=== PATIENT | male | born 1950 | race Caucasian/White ===

== ENCOUNTER → 2016-09-19 | Outpatient (CLI) | payer MEDICARE ==
--- NOTE | 2016-09-19 19:31 | CONS ---
DATE OF CONSULTATION: REASON FOR CONSULTATION: Sleep apnea. This is a 66-year-old male patient who was diagnosed having obstructive sleep apnea back in 1987. Since then, the patient has had several titration, the last one of which was many years back and the patient was given CPAP at a pressure of 13 or 14 cm of water. He is not exactly sure of the exact pressure. He is utilizing a nose mask. Today he is coming in for a follow-up. His treatment has not been much successful. He thinks that the CPAP pressures is probably low and not giving him the full benefit as the patient is waking up much more sleepy and tired during the day. He probably is snoring also at nighttime. He has no reported witnessed apneas. He is going to bed around 8:00 p.m. Wakes up at 7:00 to 8:00 a.m. in the morning and he seems to be sleeping or at least spending in bed around 8 to 10 hours every night. He is fatigued and sleepy and his Granville score is 5. Denies having any recent weight gain. His weight is around 350 pounds. His BMI is 46.1. He has chronic atrial fibrillation in addition. He is also in need for supplies as he recently switched his insurance to Medicare and reconfirmation of his SANTI would be needed and I thought this would be reasonable to undergo a CPAP titration on this patient to upgrade his CPAP pressure knowing that he is having symptoms at the current pressure setting. PAST MEDICAL HISTORY: 1. Obstructive sleep apnea. 2. Chronic atrial fibrillation. 3. Obesity. 4. Prostate enlargement. 5. Cerebrovascular accident. 6. Varicose veins. 7. Past surgical history includes varicose vein stripping. ALLERGIES: Not known. OUTPATIENT MEDICATION: The patient is on Eliquis, Multaq, and [place]. SOCIAL HISTORY: The patient is a nonsmoker. No history of alcohol. No history of IV drugs. FAMILY HISTORY: Negative for sleep apnea. REVIEW OF SYSTEMS: Twelve-point review of systems was done. Positive findings were all mentioned above in the history of present illness. Of significance is the excessive sleepiness. No chronic pain. No restlessness in the lower extremities. No grinding of the teeth. No bruxism. No nightmares. No nausea. No vomiting. No diarrhea. No abdominal pain. No motor vehicle accidents because of feeling drowsy or sleepy. BP is 136/79, pulse 83, respirations 16, temperature 98.4, weight is 350. Neck size 21-1/4. Granville score is 5. BMI is 46.1. Height is 6 feet 1. Saturations 96% on room air. GENERAL APPEARANCE: Calm, comfortable. HEENT: Short neck, crowding posterior pharynx. There is no goiter, neck masses. Mallampati class IV. LUNGS: Diminished; otherwise clear. HEART: Sounds are regular rate and rhythm. ABDOMEN: Soft, nontender. No organomegaly, obese. Organs cannot be accurately palpated. EXTREMITIES: Trace edema. There is no cyanosis or clubbing. IMPRESSION: 1. Symptomatic obstructive sleep apnea. The patient is coming in for re-evaluation. 2. Chronic atrial fibrillation. 3. Cerebrovascular accident. 4. Varicose veins. 5. Morbid obesity with a body mass index of 46.1. PLAN: 1. Will retrieve this patient's original polysomnogram that confirms the presence of sleep apnea. 2. Will set up this patient for a CPAP titration, during which the patient's CPAP pressure will be updated and the mask will be changed and the new mask interface will be given. He opts and prefers nasal mask. 3. Encourage weight loss. 4. Tight control of cardiovascular risk factors. 5. Will follow and will see me back in the office following the titration for further advice and adjustments.
== END | disposition home or self-care (01) ==
LOC: SLEEP 14:04
PROVIDERS: ATTEND Internal Medicine Critical Care Medicine
DX: G47.33 Obstructive sleep apnea (adult) (pediatric) (principal); I48.91 Unspecified atrial fibrillation; I63.9 Cerebral infarction, unspecified; I83.90 Asymptomatic varicose veins of unspecified lower extremity; E66.01 Morbid (severe) obesity due to excess calories; Z68.42 Body mass index [BMI] 45.0-49.9, adult
CPT/HCPCS: 99211

== ENCOUNTER → 2017-05-10 | Outpatient (CLI) | payer MEDICARE ==
[2017-05-10 13:15] LABS: Blood Urea Nitrogen 22 mg/dL (9-20)
--- NOTE | 2017-05-10 14:21 | CT ---
EXAMINATION TYPE: CT chest w con DATE OF EXAM: 05/10/2017 COMPARISON: NONE HISTORY: 67-year-old male Recent diagnosis of colon cancer TECHNIQUE: Contiguous axial scanning of the chest after the administration of 100 mL of Omnipaque 300 . Coronal/sagittal reconstructions performed. CT DLP: 1105.2mGycm. Automatic exposure control utilized for a dose reduction. FINDINGS: Heart upper limits of normal in size without pericardial effusion. Coronary vessel calcifications are present and a marker for coronary artery disease. Mild aneurysm ascending aorta at 4.1 cm. Mild arthroscopic arch calcifications. Conventional arterial vessel branching anatomy. Mild aneurysm upper descending thoracic aorta 3.2 cm. Large caliber to the main right and left pulmonary arteries at 3.1 and 2.9 cm, respectively, suggesti ng underlying pulmonary arterial hypertension. Nonenlarged mediastinal lymph nodes are present. No thoracic lymphadenopathy by CT size criteria. There is minimal plaque-like pleural-based thickening along the posterior left apex, axial image 11. Very mild upper lung emphysematous change. Mild diffuse bronchial wall thickening likely chronic bron chitis. Strandy atelectasis at the inferior lingula. No consolidation or pleural effusion. No suspici ous pulmonary nodule or mass. Visualized upper abdomen shows an anterior splenule in mild stool burden. Bones: Endplate spondylosis mid to lower thoracic spine. No osseous destructive process. IMPRESSION: 1. Mild plaque-like pleural-based thickening along the posterior left apex. Nonspecific finding. This can be reassessed in 6 months. 2. COPD when mild emphysema. 3. Pulmonary arterial hypertension and CAD. 4. No findings of metastatic disease to the thorax. 5. Aneurysmal thoracic aorta (ascending measuring 4.1 cm).
== END | disposition home or self-care (01) ==
LOC: RADCTMAIN 12:41
PROVIDERS: ATTEND Colon & Rectal Surgery
DX: J43.9 Emphysema, unspecified (principal); J98.4 Other disorders of lung; J44.9 Chronic obstructive pulmonary disease, unspecified; I25.10 Atherosclerotic heart disease of native coronary artery without angina pectoris; I71.2 Thoracic aortic aneurysm, without rupture; I27.20 Pulmonary hypertension, unspecified; C21.0 Malignant neoplasm of anus, unspecified
CPT/HCPCS: 82565; 84520; 71260; 36415; Q9967

== ENCOUNTER 2017-05-17 10:36 | Day surgery (SDC) | payer MEDICARE ==
[2017-05-16 15:07] VITALS: BMI 44.3
[2017-05-17 11:23] VITALS: RESP 18; TEMP 97.9
[2017-05-17] MEDS ORDERED: LIDOCAINE 2% INJ 20 MG/ML SQ ONE (12:55)
--- NOTE | 2017-05-17 13:24 | IR ---
PICC LINE PLACEMENT: HISTORY: Infection requiring long-term antibiotic therapy PROCEDURE: Ultrasound and fluoroscopic guidance of PICC line placement. COMPLICATIONS: None ANESTHESIA: 1. 1% Lidocaine locally. FINDINGS/TECHNIQUE: The procedure was explained to the patient. The risks, complications, benefits and alternatives were discussed and any questions were answered. Informed consent was obtained. The patient was placed supine on the fluoroscopic table and prepped and draped in the usual sterile [facility] ion. Utilizing a 21 gauge needle and sonographic and fluoroscopic guidance, access in the vein was achieved and there is placement of a 0.018 guidewire. The vein is patent. A 4-F sheath was placed o nilam the guidewire. The guidewire and dilator were removed and a 4-F. PICC line was placed through th e sheath with the tip at the level of the SVC. The sheath was removed, the catheter was flushed and sutured into position. The patient was stable throughout the procedure and remained stable upon disc harge from the Department of Radiology. The vein puncture was patent under ultrasound. A hart scale image was obtained to document patency of the vein punctured. All elements of the maximal barrier technique were utilized. FLUOROSCOPY TIME: 0.1 minutes and one image submitted IMPRESSION: Successful PICC line placement under ultrasound and fluoroscopic guidance.
[2017-05-17 15:45] VITALS: BP 127/64; PULSE 85
== END 2017-05-17 13:40 | disposition home or self-care (01) ==
LOC: CATHCVL 10:36
PROVIDERS: ATTEND Radiology Diagnostic Radiology
DX: C21.0 Malignant neoplasm of anus, unspecified (principal); I87.2 Venous insufficiency (chronic) (peripheral); I10 Essential (primary) hypertension; F32.9 Major depressive disorder, single episode, unspecified; I48.91 Unspecified atrial fibrillation; Z79.01 Long term (current) use of anticoagulants; Z87.891 Personal history of nicotine dependence; Z79.899 Other long term (current) drug therapy
CPT/HCPCS: 36569; 76937; 77001; C1751; C1769; J2001

== ENCOUNTER → 2017-05-19 | Outpatient (CLI) | payer MEDICARE ==
--- NOTE | 2017-05-21 08:55 | PE ---
EXAMINATION TYPE: PET CT fusion skull to thigh DATE OF EXAM: 05/19/2017 COMPARISON: NONE Prior PET/CT: None HISTORY: Colon cancer TECHNIQUE: Following the intravenous administration of 13.13 mCi of F-18 FDG, whole body images are performed from the skull base to the midthigh. Images are reviewed on the computer in the coronal, a xial, and sagittal planes. Reconstructed rotating images are created on independent workstation and reviewed on the computer. A localization and attenuation correction CT is performed in conjunction with the PET scan. DLP: 645.03 mGycm SCAN: Initial Blood glucose: 99 mg/dL Beam hardening artifact from the patient's body habitus is present. This appears to be affecting the attenuation correction. Best estimates are as follows. Average Mediastinum SUV: 1.5 Average Liver SUV: 2.8 FINDINGS: NECK: No abnormal uptake THORAX: No abnormal uptake ABDOMEN: No abnormal uptake PELVIS: There is focal increased radiotracer accumulation within SUV of 13.4 in the distal rectal reg ion. Findings can be compatible with patient's reported neoplasm. OSSEOUS STRUCTURES: No abnormal uptake LOCALIZATION CT: The ascending thoracic aorta at the level of the main pulmonary artery is dilated at 5.1 cm patent main pulmonary artery the bifurcation is 3.3 cm. Coronary artery calcifications presen t. COMPARISON: None IMPRESSION: 1. Focal increased radiotracer accumulation in the distal rectal region compatible with the patient's reported neoplasm. 2. No suspicious distant areas of uptake to suggest metastatic disease. 3. Examination limited due to patient body habitus. This may be also complicated the patient's report ed claustrophobia.
== END | disposition home or self-care (01) ==
LOC: RADPETMAIN 12:35
PROVIDERS: ATTEND Radiology Radiation Oncology
DX: C21.1 Malignant neoplasm of anal canal (principal)
CPT/HCPCS: 78815; A9552

== ENCOUNTER → 2017-09-06 | Outpatient (CLI) | payer MEDICARE ==
[2017-09-07 14:59] LABS: Hepatits C Virus RNA Not detected (Not detected); Hepatits C Virus RNA, Quant <12 IU/mL (<12); LOG HCV IU/mL <1.08 (<1.08)
== END | disposition home or self-care (01) ==
LOC: LABWHC1 15:23
PROVIDERS: ATTEND Family Medicine
DX: B18.2 Chronic viral hepatitis C (principal)
CPT/HCPCS: 36415; 87522

== ENCOUNTER → 2017-09-08 | Outpatient (CLI) | payer MEDICARE ==
--- NOTE | 2017-09-09 14:51 | PE ---
EXAMINATION TYPE: PET CT fusion skull to thigh DATE OF EXAM: 09/08/2017 COMPARISON: Prior PET/CT May 19, 2017. Prior chest CT May 10, 2017 HISTORY: Colorectal/anal cancer progress study after surgery with chemotherapy and radiation treatmen t completed in August. TECHNIQUE: Following the intravenous administration of 12.518 mCi of F-18 FDG, whole body images are performed from the skull base to the midthigh. Images are reviewed on the computer in the coronal, axial, and sagittal planes. Reconstructed rotating images are created on independent workstation and reviewed on the computer. A noncontrast CT is performed in conjunction with the PET scan. SCAN: Subsequent Scan FINDINGS: SKULL BASE AND NECK: No new areas of suspicious hypermetabolic uptake are identified CHEST, MEDIASTINUM, AND HILAR REGION: No new areas of suspicious hypermetabolic uptake are seen. ABDOMEN AND PELVIS: In the low rectum/anus there is mild residual abnormal hypermetabolic uptake on c urrent study with interval improvement in soft tissue thickening also identified versus prior study. The max SUV is 4.58 near axial image 268. No new areas of suspicious hypermetabolic uptake are identi fied. OSSEOUS STRUCTURES: No new areas of suspicious hypermetabolic uptake are seen. OTHER CT: Artifact from patient's large body habitus is redemonstrated. There is persisting cardiomegaly and coronary artery calcification which is noted marker for coronary artery disease. Some areas of mild pleural thickening in the posterior left upper lung remain present. Ascending aorta measures up to 4.5 cm in diameter on current study axial image 106 Bladder is poorly distended and thus suboptimally evaluated. Some scattered left-sided pelvic phlebol iths are seen. There is multilevel facet arthropathy in the lower lumbar spine. There is multilevel spurring in the thoracic spine. IMPRESSION: Marked Positive treatment response to known tumor in the anus. No new or metastatic disea se identified.
== END | disposition home or self-care (01) ==
LOC: RADPETMAIN 08:03
PROVIDERS: ATTEND Internal Medicine Hematology & Oncology
DX: C21.0 Malignant neoplasm of anus, unspecified (principal)
CPT/HCPCS: 78815; A9552

== ENCOUNTER → 2018-09-14 | Outpatient (CLI) | payer MEDICARE ==
--- NOTE | 2018-09-16 15:40 | PE ---
EXAMINATION TYPE: PET CT fusion skull to thigh DATE OF EXAM: 09/14/2018 COMPARISON: 09/08/2017 and 05/19/2017 HISTORY: History of anal carcinoma. Follow-up exam. Prior surgery and chemotherapy as well as radiati on and august 2017. TECHNIQUE: Following the intravenous administration of 11.426 mCi of F-18 FDG, whole body images are performed from the skull base to the midthigh. Images are reviewed on the computer in the coronal, axial, and sagittal planes. Reconstructed rotating images are created on independent workstation and reviewed on the computer. A localization and attenuation correction CT is performed in conjunction with the PET scan. SCAN: Subsequent FINDINGS: Again the exam is suboptimal given patient body habitus. Mediastinal background: 3.1 Abdominal background: 4.51 SKULL BASE AND NECK: Suspicious metabolic activity. CHEST, MEDIASTINUM, AND HILAR REGION: No suspicious hypermetabolic activity. ABDOMEN AND PELVIS: In the low rectum and anus mild residual hypermetabolic activity is again noted w ith prior max SUV of 4.58 on axial image 268 on the prior and current maximum SUV of 3.7. On the exam of 05/19/2017 this had a reported SUV of 13.4. OSSEOUS STRUCTURES: No suspicious hypermetabolic activity. OTHER CT: Paranasal sinuses and mastoid air cells appear well aerated. Moderate degenerative changes of the spine are seen. No presacral fluid collection. Urinary bladder is decompressed. Therefore urin mahad bladder is suboptimally evaluated. No dilated large or small bowel is seen. CT images are partial ly degraded by patient body habitus and very suboptimal for evaluation. Cardiomegaly is redemonstrate d with moderate coronary artery calcifications. Ascending aorta measures 4.4 cm and main pulmonary ar jomar measures 3.6 cm, enlarged suggesting pulmonary arterial hypertension. Scattered areas of atelect asis are seen within the lungs. Evaluation is limited for pulmonary nodule however no pulmonary mass is seen. There is a questionable new subcentimeter pulmonary nodule within the right middle lobe on i mage 110. IMPRESSION: 1. Continued decrease of focal mild hypermetabolic activity in the low rectum again suggesting posttr eatment change rather than recurrent neoplasm. No new evidence of metastasis in the chest, abdomen, o r pelvis. 2. Questionable new subcentimeter pulmonary nodule in the right middle lobe is suboptimally viewed gi segundo patient body habitus and below the threshold of PET CT. Continued surveillance is recommended.
== END | disposition home or self-care (01) ==
LOC: RADPETMAIN 10:20
PROVIDERS: ATTEND Internal Medicine Hematology & Oncology
DX: C21.0 Malignant neoplasm of anus, unspecified (principal)
CPT/HCPCS: 78815; A9552

== ENCOUNTER → 2019-08-29 | Outpatient (CLI) | payer MEDICARE ==
--- NOTE | 2019-09-02 15:23 | PE ---
Nuclear medicine PET/CT HISTORY: Anal carcinoma, colorectal carcinoma, subsequent Patient received 11.2 mCi F-18 FDG intravenously in delayed scanning was performed from skull base to the mid thighs. Localization and attenuation correction CT scan was performed. Correlation to prior nuclear medicine PET/CT 09/14/2018. Exam may be limited by patient body habitus. Neck and chest: No interval change. No suspicious hypermetabolic uptake. No lung mass, pleural perica rdial effusion. No evident adenopathy. There are coronary artery calcifications. ABDOMEN: There is some mild uptake at the level of the anus which could possibly represent physiologi c change. No pelvic adenopathy or ascites. Osseous structures are unremarkable. IMPRESSION: Findings similar to prior exam. No suspicious uptake.
== END | disposition home or self-care (01) ==
LOC: RADPETMAIN 08:04
PROVIDERS: ATTEND Internal Medicine Hematology & Oncology
DX: C21.1 Malignant neoplasm of anal canal (principal)
CPT/HCPCS: 78815; A9552

== ENCOUNTER → 2020-09-10 | Outpatient (CLI) | payer MEDICARE ==
--- NOTE | 2020-09-13 07:31 | CT ---
EXAMINATION TYPE: CT ChestAbdPelvis w con DATE OF EXAM: 09/10/2020 COMPARISON: Most recent PET CT August 29, 2019 and older studies HISTORY: Anal cancer. CT DLP: 4025.9 mGycm. Automated Exposure Control for Dose Reduction was Utilized. CONTRAST: CT scan of the thorax, abdomen and pelvis is performed with oral and with IV Contrast, patient inject ed with 100 mL of Isovue M300. FINDINGS: LUNGS: The lungs remain grossly clear, there is no concerning new greater than 5 mm parenchymal mass or nodule identified. There is no pleural effusion or pneumothorax seen. The tracheobronchial tree is patent. MEDIASTINUM: There are no greater than 1 cm hilar or mediastinal lymph nodes. No pericardial effusi on is seen. Mild cardiomegaly. Coronary artery calcification again seen which is noted marked for un derlying coronary artery disease. Thyroid gland is small in size or absent. LIVER/GB: Liver is diffusely low dense consistent with diffuse fatty infiltration. PANCREAS: No significant abnormality is seen. SPLEEN: Stable small inferior splenule. ADRENALS: No significant abnormality is seen. KIDNEYS: No visualized excretion but no hydronephrosis seen bilaterally. BOWEL: Oral contrast only reaches jejunal loops in the left abdomen. There is no suspicious small or large bowel dilatation. No suspicious new distal rectal/anal mass or adjacent adenopathy clearly seen . GENITAL ORGANS: Left-sided pelvic phlebolith. Prostate normal in size. LYMPH NODES: No new greater than 1cm abdominal or pelvic lymph nodes are appreciated. OSSEOUS STRUCTURES: Mild to moderate multilevel spurring in the thoracic spine. Slight scoliotic curv ature. OTHER: Moderate calcified plaque of the aorta extends into branch vessels. IMPRESSION: No suspicious new mass or adenopathy to suggest active neoplastic recurrence.
== END | disposition home or self-care (01) ==
LOC: RADCTMAIN 12:24
PROVIDERS: ATTEND Internal Medicine Hematology & Oncology
DX: C21.0 Malignant neoplasm of anus, unspecified (principal)
CPT/HCPCS: 71260; 74177; Q9967 ×2

== ENCOUNTER → 2021-12-20 | Outpatient (CLI) | payer MEDICARE ==
--- NOTE | 2021-12-20 16:47 | P.SLEEP ---
History of Present Illness H&P Date: 12/20/21 This is a 71-year-old male patient with a known history of obstructive sleep apnea. The patient also has multiple medical problems and comorbidities. He has been seen in sleep center back in 2017 and today's coming in for another reevaluation and is hoping to update his CPAP machine. He was originally diagnosed having obstructive sleep apnea back in 1987. As such, the patient is a long-time CPAP user. Currently he is using a ResMed S9 series which is set at a pressure of 14 cm of water. He is also using a comfort gel blue S/M nasal mask. The patient is extremely compliant. The patient is using the machine every night and is compliant to for more than 4 hours of usage is in order of 1 00%. In fact, he is very much worried that his machine will go back and he may not be able to sleep without his machine. Very much dependent on his CPAP unit. He is requesting a new generation CPAP unit. I'm going to order a new one for him through his DME, [employer]. I'm going to utilize the same pressure. Otherwise, his weight is still up in the order of 38 pounds. He has gained around 35 pounds since his last evaluation 2016. He remains and atrial fibrillation. He also has developed anal cancer and the patient undergone chemoradiation therapy and seems to be in remission for now. While of treatment, he is unable to sleep because of snoring and ongoing apneas. No chest pain, shortness of breath or heartburn during sleep. No sleepwalking. No sleep talking. No restlessness in his lower extremities. No anxiety or panic attack. He was a bit anxious this morning and the patient's blood pressure was quite elevated and this is not typical for him. Review of Systems Constitutional: Reports daytime sleepiness, Reports fatigue, Reports weight gain Eyes: denies as per HPI, denies blurred vision, denies bulging eye, denies decreased vision, denies diplopia, denies discharge, denies dry eye, denies irritation, denies itching, denies pain, denies photophobia, denies loss of peripheral vision, denies loss of vision, denies tunnel vision/blind spots Ears: deny: decreased hearing, ear discharge, earache, tinnitus Ears, nose, mouth and throat: Reports as per HPI Breasts: absent: as per HPI, gynecomastia Cardiovascular: Reports irregular heart beat, Reports leg edema, Reports shortness of breath Respiratory: Reports as per HPI, Reports sleep apnea, Reports snoring Gastrointestinal: Reports as per HPI Genitourinary: Reports as per HPI Musculoskeletal: Reports as per HPI Musculoskeletal: absent: ankle pain, ankle stiffness, ankle swelling Integumentary: Reports as per HPI Neurological: Reports as per HPI Psychiatric: Reports as per HPI Endocrine: Reports as per HPI Hematologic/Lymphatic: Reports as per HPI Allergic/Immunologic: Reports as per HPI Past Medical History Past Medical History: Atrial Fibrillation, Cancer (Anal cancer), CVA/TIA, Hypertension, Osteoarthritis (OA), Sleep Apnea/CPAP/BIPAP Additional Past Medical History / Comment(s): Obesity, obstructive sleep apnea, chronic atrial fibrillation, BPH, CVA, varicose veins, anal cancer with previous chemoradiation therapy, cardiac clot maintained on long-term anticoagulation History of Any Multi-Drug Resistant Organisms: None Reported Past Surgical History: Hernia Repair Additional Past Surgical History / Comment(s): colonoscopy mar 27 hiatal hernia 12 years repair ago , Past Anesthesia/Blood Transfusion Reactions: No Reported Reaction Past Psychological History: No Psychological Hx Reported Past Alcohol Use History: None Reported, Occasional Past Drug Use History: Marijuana Additional Drug Use History / Comment(s): occasionally not often - Past Family History Mother Family Medical History: No Reported History Medications and Allergies Home Medications and Allergies Comment(s): Shayy Aziza 5 mg by mouth twice a day, metoprolol 50 mg twice a day, Crestor 10 mg by mouth daily, L-thyroxine 100 mg by mouth daily, Percocet on an as-needed basis Home Medications Medication Instructions Recorded Confirmed Type HYDROcodone/APAP 10-325MG [[place] 1 tab PO Q6H PRN 05/16/17 06/18/17 History 10-325] Metoprolol Tartrate [Lopressor] 50 mg PO BID 05/16/17 06/18/17 History polyethylene glycoL 3350 [Miralax] 17 gm PO QAM 05/16/17 06/18/17 History Allergies Allergy/AdvReac Type Severity Reaction Status Date / Time No Known Allergies Allergy Verified 06/11/17 10:02 Physical Exam BP is 193/103 which is exceptionally elevated and is not typical for her. Pulse is 95 and regular, respirations 20 with a temperature of 97.0 and his weight is 388 pounds. Neck size 23 inch. Rothschild score is at 6. BMI is 49.8 Gen. appearance the patient is morbidly obese and is calm and comfortable The patient appeared well nourished and normally developed. Vital signs as documented. Head exam is unremarkable. No scleral icterus or corneal arcus noted. Neck is without jugular venous distension, thyromegaly, or carotid bruits. . The patient is a Mallampati class IV. Carotid upstrokes are brisk bilaterally. Lungs are clear to auscultation and percussion. Cardiac exam reveals the PMI to be normally sized and situated. Rhythm is irregular consistent with atrial fibrillation. First and second heart sounds normal. No murmurs, rubs or gallops. Abdominal exam reveals normal bowel sounds, no masses, no organomegaly and no aortic enlargement. Extremities are nonedematous and both femoral and pedal pulses are normal.Examination of the skin revealed no evidence of significant rashes, suspicious appearing nevi or other concerning lesions.Neurologically, the patient is awake and alert and the patient does not have any focal neurological deficit. Cranial nerves are essentially intact. Assessment and Plan Plan: Obstructive sleep apnea, symptomatic, a long-time CPAP use of his been on CPAP therapy since 1987. His last titration was done and 2017 and the patient remains on a CPAP pressure of 14 cm of water and his treatment has been very successful over the years. He wants to update his CPAP unit. Obesity with interval 35 pounds weight gain. Currently BMI is up to 49.8 with a weight of 388 Chronic hypersomnia, improved with CPAP therapy Chronic atrial fibrillation BPH Previous history of CVA Varicose veins Anal cancer with a previous chemoradiation therapy Hyperlipidemia Hypothyroidism Plan I'm going to order another CPAP unit for this patient a new generation ResMed 11 at a pressure of 14 cm of water with C-Flex of 3 and the patient is also going to be given a comfort gel blue nasal mask small/medium size. The patient is a long-time CPAP user and he may not need another study. He continues to benefit from the treatment. He is very much dependent on CPAP therapy. Order will be sent to [facility] and the patient was seen back in 30-90 days for a compliance he check. He goes to [place] and I told him that he may need to comment prior to going to [place] for a compliance he check to make sure that his machine is covered and certified. Encourage weight loss. Maintain with sleep hygiene measures. 3 comorbidities. See back in follow-up in 30-90 days after obtaining a new CPAP unit. Sleep Note - Sleep Note Sleep Note: Temperature: Pulse Rate: Respiratory Rate: Blood Pressure: SpO2: Height: Weight: BMI: Neck Circumference:
== END ==
LOC: SLEEP 15:47
PROVIDERS: ATTEND Internal Medicine Critical Care Medicine
DX: G47.33 Obstructive sleep apnea (adult) (pediatric) (principal); Z99.89 Dependence on other enabling machines and devices; E66.9 Obesity, unspecified; I48.20 Chronic atrial fibrillation, unspecified; Z68.42 Body mass index [BMI] 45.0-49.9, adult; N40.0 Benign prostatic hyperplasia without lower urinary tract symptoms; Z86.73 Personal history of transient ischemic attack (TIA), and cerebral infarction without residual deficits; I83.90 Asymptomatic varicose veins of unspecified lower extremity; E78.5 Hyperlipidemia, unspecified; C20 Malignant neoplasm of rectum; E03.9 Hypothyroidism, unspecified; M19.90 Unspecified osteoarthritis, unspecified site
CPT/HCPCS: 99211